=== PATIENT | male | born 1970 | race Caucasian/White ===

== ENCOUNTER 2017-08-10 10:17 | Emergency (ER) | payer BC ==
[~2017-08-10] VITALS: Ht 177.8 cm; Wt 118.0 kg
--- NOTE | ~2017-08-10 | EKG ---
PATIENT: QUINN MCCARTY UNIT #: [id number] Ventricular Rate: 60 BPM Atrial Rate: 60 BPM P-R Interval: 122 ms QRS Duration: 90 ms Q-T Interval: 426 ms QTC Calculation(Bezet): 426 ms P Powers: 25 degrees Calculated R Powers: -6 degrees Calculated T Powers: 0 degrees Diagnosis Line: Normal sinus rhythm Diagnosis Line: Normal ECG Diagnosis Line: No previous ECGs available Diagnosis Line: Confirmed by MERCEDES RUSSO MD ([id number]) on Diagnosis Line: 08/19/2017 6:30:23 AM INTERPRETING MD: AMADEO
--- NOTE | ~2017-08-10 | CT71 ---
[facility] A Service [facility] RADIOLOGY TEXT RESULTS PATIENT: QUINN MCCARTY LOCATION: SED : 68 UNIT #: [id number] AGE: [address]: Reinaldo Alonso MD SEX: M ORDER DR: [id number] [place] [address] [id number] E MR#: [id number] Acc #: [id number] NAME: QUINN MCCARTY : 1970 SEX: M STUDY DATE/TIME: 08/10/2017 11:41 UNIT: SED ROOM: STUDY DESCRIPTION: CT Head Wo Contrast Attending Physician: Reinaldo Alonso M.D. Ordering Physician: Reinaldo Alonso M.D. Primary Care Physician: Kamryn Stein M.D. MEDICAL IMAGING REPORT This report is preliminary unless electronic signature is present. EXAM CT of head. INDICATIONS Dizziness for one day. TECHNIQUE CT of the head without contrast. This CT exam was performed with one or more of the following radiation dose reduction techniques: automatic exposure control, adjustment of mA and/or kV according to patient size, and iterative reconstruction. COMPARISON None available. FINDINGS Axial noncontrast images were obtained from the skull base to the vertex. Ventricular size and configuration are normal. There is no evidence of acute infarct or hemorrhage. There are no extra-axial fluid collections. No mass lesion or mass effect is seen. There are no skull fractures. IMPRESSION Normal noncontrast head CT. Dictated by... Kang Brunner M.D. THIS IS AN ELECTRONICALLY VERIFIED REPORT Kang Brunner M.D. at 08/11/2017 1:23 PM Dwayne/keyshawn [facility] A Service [facility] RADIOLOGY TEXT RESULTS PATIENT: QUINN MCCARTY LOCATION: SED : 68 UNIT #: [id number] AGE: [address]: Reinaldo Alonso MD SEX: M ORDER DR: TD: 08/11/2017 04:59 JOB #: [id number] MEDICAL IMAGING REPORT Page 1 of 1
--- NOTE | ~2017-08-10 | CR72 ---
[facility] A Service of [facility] RADIOLOGY TEXT RESULTS PATIENT: QUINN MCCARTY LOCATION: SED : 68 UNIT #: [id number] AGE: [address]: Reinaldo Alonso MD SEX: M ORDER DR: [id number] [place] [address] [id number] E MR#: [id number] Acc #: [id number] NAME: QUINN MCCARTY : 1970 SEX: M STUDY DATE/TIME: 08/10/2017 11:33 UNIT: SED ROOM: STUDY DESCRIPTION: CR Chest Single View Portable Attending Physician: Reinaldo Aolnso M.D. Ordering Physician: Reinaldo Alonso M.D. Primary Care Physician: Kamryn Stein M.D. MEDICAL IMAGING REPORT This report is preliminary unless electronic signature is present. EXAM Single view chest. INDICATIONS Shortness of air and dizziness for 1 day. FINDINGS Single portable AP view of the chest compared to 12/12/2015. Heart and mediastinal contours are normal. Lungs are clear. No pleural effusion. IMPRESSION Normal chest radiograph. Dictated by... Kang Brunner M.D. THIS IS AN ELECTRONICALLY VERIFIED REPORT Kang Brunner M.D. at 08/11/2017 1:25 PM CHEN/keyshawn TD: 08/11/2017 05:01 JOB #: [id number] MEDICAL IMAGING REPORT Page 1 of 1
[~2017-08-10 10:17] MED LIST: CYMBALTA PO; NO MEDICATIONS; VICODIN PO
[2017-08-10 10:54] LABS: BASOPHIL# 0.1 X10e3 (0-0.3); BASOPHIL% 1.2 % (0-2.5); EOSINOPHIL# 0.2 X10e3 (0-0.7); EOSINOPHIL% 3.1 % (0.0-7.0); HEMATOCRIT 41.1 % (38.0-50.0); HEMOGLOBIN 14.4 gm/dL (13.0-16.0); LYMPHOCYTE% 18.8 % (17.0-45.0); MEAN CELL VOLUME 86.2 FL (83-96); MEAN CORPUSCULAR HEMOGLOBIN 30.2 PG (28-34); MEAN PLATELET VOLUME 7.7 FL (6.5-11.5); MONOCYTE# 0.4 X10e3 (0-1.0); MONOCYTE% 7.7 % (3.0-12.0); NEUTROPHIL# 3.7 X10e3 (1.5-7.1); NEUTROPHIL% 69.2 % (40-75); PLATELET COUNT 232 X10e3 (140-420); RED BLOOD COUNT 4.77 X10e (3.90-5.60); RED CELL DISTRIBUTION WIDTH 13.3 % (11.0-15.5); WHITE BLOOD COUNT 5.4 X10e3 (4.0-10.5)
[2017-08-10 10:55] LABS: DIFF IND NO
[2017-08-10 11:02] LABS: POC - CKMB 1.4 ng/mL (0.0-7.9); POC - MYOGLOBIN 31.2 ng/mL (0.0-169.0); POC - TROPONIN <0.05 ng/mL (<=0.05)
[2017-08-10 11:10] LABS: ALBUMIN SERUM 4.7 g/dL (3.5-5.0); BILIRUBIN, DIRECT 0.1 mg/dL (0.0-0.2); BILIRUBIN,INDIRECT 1.2 mg/dL (0.0-0.9); BILIRUBIN,TOTAL 1.3 mg/dL (0.2-2.0); BUN/CREATININE RATIO 23.75; CALCIUM SERUM 9.1 mg/dL (8.4-10.2); CREATININE SERUM 0.8 mg/dL (0.6-1.4); GLOM FILT RATE Estimated 106.4 mL/min (>60); MAGNESIUM 2.1 mg/dL (1.6-3.0); POTASSIUM 3.9 mmol/L (3.5-5.1); PROTEIN TOTAL SERUM 7.9 g/dL (6.0-8.3)
[2017-08-10 13:37] LABS: POC - CKMB 1.1 ng/mL (0.0-7.9)
[2017-08-10 13:38] LABS: POC - MYOGLOBIN 50.6 ng/mL (0.0-169.0); POC - TROPONIN <0.05 ng/mL (<=0.05)
== END 2017-08-10 14:21 | disposition home or self-care (01) ==
LOC: SED 10:17
PROVIDERS: Emergency Medicine
DX: H83.03 Labyrinthitis, bilateral (principal); Z98.890 Other specified postprocedural states
CPT/HCPCS: 36415; 70450; 71010; 80048; 80076; 82553; 82947; 83735; 83874; 84484; 85025; 85379; 93005; 96361; 96374; 99284; J2405

== ENCOUNTER 2017-08-13 17:03 | Emergency (ER) | payer BC ==
[2017-08-13] MEDS ORDERED: MECLIZINE HCL25 M2 (17:11)
== END 2017-08-13 19:15 | disposition home or self-care (01) ==
LOC: SED 17:03
DX: R42 Dizziness and giddiness (principal)
CPT/HCPCS: 99284